=== PATIENT | female | born 1960 | race African-American/Black ===

== ENCOUNTER 2020-04-22 15:22 | Emergency (ER) | payer SELFPAY ==
[~2020-04-22] VITALS: Ht 185.4 cm; Wt 131.5 kg
[2020-04-22 15:30] VITALS: BP 105/98
[2020-04-22] MEDS ORDERED: LIDOCAINE 1% HCL (LOCAL ANESTH.) INJ 20ML MDV IJ ONE (16:00)
== END 2020-04-22 16:48 | disposition home or self-care (01) ==
LOC: ER 15:22
DX: L03.011 Cellulitis of right finger (principal); L08.9 Local infection of the skin and subcutaneous tissue, unspecified; X58.XXXA Exposure to other specified factors, initial encounter; Y93.89 Activity, other specified; Y92.89 Other specified places as the place of occurrence of the external cause; Y99.8 Other external cause status
CPT/HCPCS: 10060; 99283; J2001

== ENCOUNTER 2022-03-17 08:01 | Emergency (ER) | payer MEDICAID ==
[~2022-03-17] VITALS: Ht 182.9 cm; Wt 131.5 kg
[2022-03-17 08:54] VITALS: BP 157/95
[2022-03-17] MEDS ORDERED: KETOROLAC TROMETH 60MG/2ML VIAL IM ONE (09:00)
[2022-03-17] MEDS ORDERED: IBUP800T27 PO (09:39)
[2022-03-17] MEDS ORDERED: METH750T22 PO (09:39)
== END 2022-03-17 09:54 | disposition home or self-care (01) ==
LOC: ER 08:01
DX: M54.41 Lumbago with sciatica, right side (principal); M17.11 Unilateral primary osteoarthritis, right knee; I10 Essential (primary) hypertension; J45.909 Unspecified asthma, uncomplicated; Z79.1 Long term (current) use of non-steroidal anti-inflammatories (NSAID); Z79.899 Other long term (current) drug therapy
CPT/HCPCS: 72100; 73562; 96372; 99284; J1885

== ENCOUNTER 2022-03-28 11:58 | Emergency (ER) | payer MEDICAID ==
[~2022-03-28] VITALS: Ht 182.9 cm; Wt 131.8 kg
[~2022-03-28 11:58] MED LIST: IBUP800T27 PO; METH750T22 PO
[2022-03-28] MEDS ORDERED: MEPERIDINE HCL (50 MG/ML) 1 ML VIAL IM ONE (13:00)
[2022-03-28] MEDS ORDERED: PROMETHAZINE HCL 25 MG/ML 1ML IM ONE (13:00)
[2022-03-28 13:29] VITALS: BP 143/95
[2022-03-28] MEDS ORDERED: PRED20TA2 PO (13:45)
[2022-03-28] MEDS ORDERED: HYDR-4798 PO (13:45)
== END 2022-03-28 13:54 | disposition home or self-care (01) ==
LOC: ER 11:58
DX: M51.36 Other intervertebral disc degeneration, lumbar region (principal); M54.16 Radiculopathy, lumbar region; M79.651 Pain in right thigh; I10 Essential (primary) hypertension; J45.909 Unspecified asthma, uncomplicated; Z79.1 Long term (current) use of non-steroidal anti-inflammatories (NSAID); Z79.899 Other long term (current) drug therapy
CPT/HCPCS: 93971; 96372; 99284; J2175; J2550

== ENCOUNTER 2022-06-29 16:21 | Emergency (ER) | payer MEDICAID ==
[~2022-06-29] VITALS: Ht 182.9 cm; Wt 146.9 kg
[~2022-06-29 16:21] MED LIST changes: +HYDR-4798 PO; +PRED20TA2 PO
[2022-06-29 16:34] VITALS: BP 140/84
[2022-06-29 19:28] LABS: Albumin 3.7 g/dL (3.4-5.0); BUN/Creatinine Ratio 18.3; Calcium 9.1 mg/dL (8.5-10.1); Potassium 3.9 mmol/L (3.5-5.1)
[2022-06-29 19:31] LABS: Basophils # (auto) 0.1 10 ^3/uL (0-0.2); Bilirubin, Total 0.6 mg/dL (0.2-1.0); Eosinophils # (auto) 0.2 10 ^3/uL (0-0.8); Neutrophils % (auto) 68.8 % (37.0-80.0); Total Protein 7.9 g/dL (6.4-8.2); White Blood Cell 11.3 10^3/uL (4.4-10.8)
[2022-06-29 19:33] LABS: Basophils % (auto) 0.5 % (0.0-2.0); Eosinophils % (auto) 1.7 % (0.0-7.0); Hematocrit 40.5 % (36.0-46.0); Hemoglobin 13.2 g/dL (12.2-16.2); Lymphocytes # (auto) 2.4 10 ^3/uL (0.4-5.4); Lymphocytes % (auto) 20.8 % (10.0-50.0); Mean Corpuscular Hemoglobin 24.3 pg (28.0-32.0); Mean Corpuscular Hgb Conc. 32.6 g/dL (32.0-36.0); Mean Corpuscular Volume 74.7 fL (80.0-100.0); Monocytes # (auto) 0.9 10 ^3/uL (0-1.3); Monocytes % (auto) 8.2 % (0.0-12.0); Neutrophils # (auto) 7.8 10 ^3/uL (1.6-8.6); Red Blood Cells 5.42 10^6/uL (4.0-5.20); Red Cell Distribution Width 17.3 % (11.8-14.3)
[2022-06-29 20:44] LABS: Urine Bacteria FEW /hpf (None Seen); Urine Blood Negative /uL (Negative); Urine Hyaline Cast FEW /lpf (0 - 2); Urine Mucus FEW (None Seen); Urine Specific Gravity 1.033 (1.001-1.035); Urine WBC 11 /hpf (0 - 5)
== END 2022-06-29 22:46 | disposition home or self-care (01) ==
LOC: ER 16:21
DX: R55 Syncope and collapse (principal); I10 Essential (primary) hypertension; J45.909 Unspecified asthma, uncomplicated
CPT/HCPCS: 36415; 71045; 80053; 81001; 85025; 93005